=== PATIENT | male | born 1950 | race Two or more races ===

== ENCOUNTER 2016-10-06 15:55 | Inpatient (IN) | payer OTHER ==
[~2016-10-06] VITALS: Ht 170.2 cm; Wt 156.8 kg
[~2016-10-06 15:55] MED LIST: AZIT500T4 PO; CARV12.544 PO; FUR40T PO; GLIM4TAB42 PO; LORA-622 PO; METF-312; METF-316 PO; PRED-188 PO; SERT-135 PO; SIMV-13 PO
[2016-10-06] MEDS ORDERED: ALBUTEROL SULF 2.5 MG/0.5ML(0.5%) NEB SOLN NEB STA (16:07)
[2016-10-06] MEDS ORDERED: IPRATROPIUM BROM 0.5 MG/2.5ML INH SOL ONE (16:09)
[2016-10-06] MEDS ORDERED: ALBUTEROL SULF 2.5 MG/0.5ML(0.5%) NEB SOLN ONE (16:09)
[2016-10-06] MEDS ORDERED: methylPREDNISolone SOD SUCC 125 MG/2 ML VL IV ONE (16:15)
[2016-10-06] MEDS ORDERED: IPRATROPIUM BROM 0.5 MG/2.5ML INH SOL NEB ONE (16:15)
[2016-10-06] MEDS ORDERED: GLIM1TAB PO (16:30)
[2016-10-06] MEDS ORDERED: GABA300C PO (16:30)
[2016-10-06] MEDS ORDERED: TEMA15CA91 PO (16:30)
[2016-10-06] MEDS ORDERED: PIOG15TA25 PO (16:30)
[2016-10-06 16:52] LABS: Basophils # (auto) 0 uL; DEFINITIVE VIEW TRANSMISSION; Eosinophils # (auto) 0.1 uL; Eosinophils % (auto) 1.2 % (0.0-7.0); Hematocrit 50.4 % (41.0-53.0); Hemoglobin 15.4 g/dL (13.5-17.5); Lymphocytes # (auto) 0.7 uL; Lymphocytes % (auto) 8.3 % (10.0-50.0); Mean Corpuscular Hemoglobin 28.4 pg (28.0-32.0); Mean Corpuscular Hgb Conc. 30.5 g/dL (32.0-36.0); Mean Platelet Volume 10.2 fL (7.4-10.4); Monocytes # (auto) 0.3 uL; Monocytes % (auto) 3.4 % (0.0-12.0); Neutrophils % (auto) 87.1 % (37.0-80.0); Platelet Count (auto) 215 10^3/uL (140-450); Red Cell Distribution Width 17.9 % (11.6-16.0); SUSPECT VIEW TRANSMISSION; White Blood Cell 8.1 10^3/uL (4.4-10.8)
[2016-10-06 17:09] LABS: Partial Thromboplastin Time 29.9 sec (22.64-33.71)
[2016-10-06 17:10] LABS: INR 1.23 (0.9-1.15); Prothrombin Time 12.7 sec (9.37-12.3)
[2016-10-06 17:15] LABS: Albumin 3.6 g/dL (3.4-5.0); BUN/Creatinine Ratio 25.3; Bilirubin, Total 0.3 mg/dL (0.2-1.0); Calcium 8.9 mg/dL (8.5-10.1); Magnesium 2.2 mg/dL (1.6-2.6); Total Protein 7.5 g/dL (6.4-8.2)
[2016-10-06] MEDS ORDERED: HYDROcodone-ACET 10/325MG TAB PO ONE (17:30)
[2016-10-06 17:32] LABS: Potassium 6.1 mmol/L (3.5-5.1)
[2016-10-06] MEDS ORDERED: InsuLIN REG 1unit/0.01ml Soln (100units/ml) IV ONE (18:15)
[2016-10-06] MEDS ORDERED: DEXTROSE (50%) 50ML SYRG IV ONE (18:15)
[2016-10-06] MEDS ORDERED: AZITHROMYCIN 500MG/D5W 250ML 250 ML IV ONE (19:00)
[2016-10-06] MEDS: PIPERACILLIN-TAZOB 3.375GM 100 ML IV ONE ×2 (19:52→21:40)
[2016-10-06] MEDS: SODIUM CHLORIDE 0.9% 1,000 ML IV SCH ×2 (21:07→23:00)
[2016-10-06] MEDS ORDERED: SODIUM POLYSTYRENE SULF 15GM/60ML SUSP PO ONE (21:15)
[2016-10-06] MEDS ORDERED: NITROGLYCERIN 0.4 MG SL TAB SL PRN (21:15)
[2016-10-06] MEDS ORDERED: ONDANSETRON HCL 4 MG/2 ML VIAL IV PRN (21:15)
[2016-10-06] MEDS ORDERED: MORPHINE SULF INJ 2 MG/ML SYRINGE 1ML IV PRN (21:15)
[2016-10-06] MEDS ORDERED: DEXTROSE (50%) 50ML SYRG IV PRN (21:15)
[2016-10-06] MEDS ORDERED: IPRATROPIUM BROM 0.5 MG/2.5ML INH SOL NEB PRN (21:15)
[2016-10-06 21:20] VITALS: BP 118/81
[2016-10-06] MEDS: methylPREDNISolone SOD SUCC 125 MG/2 ML VL IV SCH (21:51)
[2016-10-06] MEDS: HEPARIN SODIUM (PORCINE) 5000 UNITS/ML 1ML VIAL SC SCH (21:51)
[2016-10-06] MEDS: ACCU-CHEK COMFORT CURVE STRIP VI SCH (22:01)
[2016-10-06] MEDS: InsuLIN REG 1unit/0.01ml Soln (100units/ml) SC SCH (22:11)
[2016-10-06] MEDS: IPRATROPIUM BROM 0.5 MG/2.5ML INH SOL NEB SCH (22:45)
[2016-10-06] MEDS: ALBUTEROL SULF 2.5 MG/0.5ML(0.5%) NEB SOLN NEB SCH (22:45)
[2016-10-06 23:15] VITALS: BP 127/77
[2016-10-06 23:25] VITALS: BP 121/48
[2016-10-07] VITALS (42 sets, daily range): BP systolic 91–150; BP diastolic 38–84
[2016-10-07] MEDS: ALBUTEROL SULF 2.5 MG/0.5ML(0.5%) NEB SOLN NEB SCH ×6 (02:03→22:01)
[2016-10-07] MEDS: IPRATROPIUM BROM 0.5 MG/2.5ML INH SOL NEB SCH ×6 (02:03→22:01)
[2016-10-07 04:01] LABS: Basophils # (auto) 0 uL; Eosinophils # (auto) 0 uL; Eosinophils % (auto) 0.1 % (0.0-7.0); Hematocrit 46.4 % (41.0-53.0); Hemoglobin 14.5 g/dL (13.5-17.5); Lymphocytes # (auto) 0.3 uL; Lymphocytes % (auto) 4.7 % (10.0-50.0); Mean Corpuscular Hemoglobin 28.8 pg (28.0-32.0); Mean Corpuscular Hgb Conc. 31.3 g/dL (32.0-36.0); Mean Corpuscular Volume 91.8 fL (80.0-100.0); Mean Platelet Volume 10.8 fL (7.4-10.4); Monocytes # (auto) 0 uL; Monocytes % (auto) 0.3 % (0.0-12.0); Neutrophils % (auto) 94.9 % (37.0-80.0); Platelet Count (auto) 181 10^3/uL (140-450); Red Cell Distribution Width 17.6 % (11.6-16.0); White Blood Cell 7.4 10^3/uL (4.4-10.8)
[2016-10-07] MEDS: HEPARIN SODIUM (PORCINE) 5000 UNITS/ML 1ML VIAL SC SCH ×3 (05:01→21:14)
[2016-10-07] MEDS: SODIUM CHLORIDE 0.9% 1,000 ML IV SCH (05:02)
[2016-10-07] MEDS: methylPREDNISolone SOD SUCC 125 MG/2 ML VL IV SCH ×3 (05:02→21:12)
[2016-10-07] MEDS: InsuLIN REG 1unit/0.01ml Soln (100units/ml) SC SCH ×4 (06:11→21:20)
[2016-10-07] MEDS: ACCU-CHEK COMFORT CURVE STRIP VI SCH ×4 (07:00→21:19)
[2016-10-07 07:15] LABS: Albumin 3.1 g/dL (3.4-5.0); Calcium 8.4 mg/dL (8.5-10.1)
[2016-10-07 07:19] LABS: BUN/Creatinine Ratio 26.3; Bilirubin, Total 0.3 mg/dL (0.2-1.0); Total Protein 6.9 g/dL (6.4-8.2)
[2016-10-07 07:32] LABS: Potassium 6.1 mmol/L (3.5-5.1)
[2016-10-07] MEDS: MONTELUKAST SODIUM 10 MG TAB PO SCH (09:50)
[2016-10-07] MEDS: ASPirin-EC 81 mg tab PO SCH (09:50)
[2016-10-07] MEDS ORDERED: DEXTROSE (50%) 50ML SYRG IV ONE (10:45)
[2016-10-07] MEDS ORDERED: FUROSEMIDE 40 MG/4 ML VIAL IV ONE (10:45)
[2016-10-07] MEDS ORDERED: CALCIUM GLUC 4.65 MEQ/10ML 4.65 MEQ in SODIUM CHL 0.9% 50 ML IV ONE (10:45)
[2016-10-07] MEDS ORDERED: InsuLIN REG 1unit/0.01ml Soln (100units/ml) IV ONE (10:45)
[2016-10-07 11:59] LABS: Urine Bilirubin Negative (Negative); Urine Color Yellow (Yellow); Urine Glucose Normal (Normal); Urine Ketone Negative (Negative); Urine Nitrite Negative (Negative); Urine RBC 1 /hpf (0 - 3); Urine Squamous Epithelial Cell FEW /hpf (<5); Urine Urobilinogen Normal (Negative); Urine pH 5.5 (5.0-8.0)
[2016-10-07 12:05] LABS: Urine Blood 1+ /uL (Negative)
[2016-10-07 14:16] LABS: BUN/Creatinine Ratio 28.3; Calcium 8.9 mg/dL (8.5-10.1); Potassium 4.6 mmol/L (3.5-5.1)
[2016-10-07] MEDS: GABAPENTIN 300 MG CAP PO SCH (17:26)
[2016-10-07] MEDS: TEMAZEPAM 15 MG CAP PO PRN (21:12)
[2016-10-08] VITALS (28 sets, daily range): BP systolic 89–151; BP diastolic 43–105
[2016-10-08] MEDS: ALBUTEROL SULF 2.5 MG/0.5ML(0.5%) NEB SOLN NEB SCH ×6 (02:15→22:54)
[2016-10-08] MEDS: IPRATROPIUM BROM 0.5 MG/2.5ML INH SOL NEB SCH ×6 (02:15→22:53)
[2016-10-08] MEDS: SODIUM CHLORIDE 0.9% 1,000 ML IV SCH (03:07)
[2016-10-08 03:17] LABS: Basophils # (auto) 0 uL; Basophils % (auto) 0.3 % (0.0-2.0); Eosinophils # (auto) 0 uL; Hematocrit 43.7 % (41.0-53.0); Hemoglobin 13.8 g/dL (13.5-17.5); Lymphocytes # (auto) 0.3 uL; Lymphocytes % (auto) 3.2 % (10.0-50.0); Mean Corpuscular Hemoglobin 28.5 pg (28.0-32.0); Mean Corpuscular Hgb Conc. 31.5 g/dL (32.0-36.0); Mean Corpuscular Volume 90.5 fL (80.0-100.0); Mean Platelet Volume 10.4 fL (7.4-10.4); Monocytes # (auto) 0.2 uL; Monocytes % (auto) 2.3 % (0.0-12.0); Neutrophils # (auto) 7.6 uL; Neutrophils % (auto) 94.2 % (37.0-80.0); Platelet Count (auto) 186 10^3/uL (140-450); Red Cell Distribution Width 17.5 % (11.6-16.0); White Blood Cell 8.1 10^3/uL (4.4-10.8)
[2016-10-08 03:29] LABS: BUN/Creatinine Ratio 29.6; Calcium 8.1 mg/dL (8.5-10.1); Potassium 4.6 mmol/L (3.5-5.1)
[2016-10-08] MEDS: InsuLIN REG 1unit/0.01ml Soln (100units/ml) SC SCH ×4 (05:43→21:56)
[2016-10-08] MEDS: HEPARIN SODIUM (PORCINE) 5000 UNITS/ML 1ML VIAL SC SCH ×3 (05:44→21:51)
[2016-10-08] MEDS: GABAPENTIN 300 MG CAP PO SCH ×3 (05:50→21:38)
[2016-10-08] MEDS: methylPREDNISolone SOD SUCC 125 MG/2 ML VL IV SCH (05:50)
[2016-10-08] MEDS: ACCU-CHEK COMFORT CURVE STRIP VI SCH ×4 (05:51→21:46)
[2016-10-08] MEDS ORDERED: FUROSEMIDE 40 MG/4 ML VIAL IV ONE (09:00)
[2016-10-08] MEDS: MONTELUKAST SODIUM 10 MG TAB PO SCH (10:46)
[2016-10-08] MEDS: ASPirin-EC 81 mg tab PO SCH (10:46)
[2016-10-08] MEDS ORDERED: hydrALAZINE HCL 20 MG/ML VL IV PRN (15:30)
[2016-10-08] MEDS ORDERED: CARVEDILOL 12.5 MG TAB ONE (15:52)
[2016-10-08] MEDS: methylPREDNISolone SOD SUCC 40 MG/ML VL IV SCH (17:50)
[2016-10-08] MEDS: CARVEDILOL 12.5 MG TAB PO SCH (21:38)
[2016-10-08] MEDS: TEMAZEPAM 15 MG CAP PO PRN (21:38)
[2016-10-09] VITALS (8 sets, daily range): BP systolic 110–147; BP diastolic 51–92
[2016-10-09] MEDS: IPRATROPIUM BROM 0.5 MG/2.5ML INH SOL NEB SCH ×5 (02:00→22:34)
[2016-10-09] MEDS: ALBUTEROL SULF 2.5 MG/0.5ML(0.5%) NEB SOLN NEB SCH ×5 (02:00→22:34)
[2016-10-09] MEDS: GABAPENTIN 300 MG CAP PO SCH ×2 (06:23→14:00)
[2016-10-09] MEDS: methylPREDNISolone SOD SUCC 40 MG/ML VL IV SCH ×2 (06:23→17:50)
[2016-10-09] MEDS: HEPARIN SODIUM (PORCINE) 5000 UNITS/ML 1ML VIAL SC SCH ×2 (06:32→14:43)
[2016-10-09] MEDS: ACCU-CHEK COMFORT CURVE STRIP VI SCH ×3 (06:39→17:00)
[2016-10-09] MEDS: InsuLIN REG 1unit/0.01ml Soln (100units/ml) SC SCH ×3 (06:42→17:00)
[2016-10-09 06:45] LABS: Basophils # (auto) 0 uL; Basophils % (auto) 0.1 % (0.0-2.0); Eosinophils # (auto) 0 uL; Hematocrit 47.8 % (41.0-53.0); Lymphocytes # (auto) 0.2 uL; Lymphocytes % (auto) 3.5 % (10.0-50.0); Mean Corpuscular Hemoglobin 28.5 pg (28.0-32.0); Mean Corpuscular Hgb Conc. 31.3 g/dL (32.0-36.0); Mean Corpuscular Volume 90.9 fL (80.0-100.0); Mean Platelet Volume 10.2 fL (7.4-10.4); Monocytes # (auto) 0.2 uL; Monocytes % (auto) 3.3 % (0.0-12.0); Neutrophils # (auto) 6.2 uL; Neutrophils % (auto) 93.1 % (37.0-80.0); Platelet Count (auto) 182 10^3/uL (140-450); Red Cell Distribution Width 17.2 % (11.6-16.0); White Blood Cell 6.7 10^3/uL (4.4-10.8)
[2016-10-09 07:22] LABS: Albumin 3.4 g/dL (3.4-5.0); BUN/Creatinine Ratio 41.2; Bilirubin, Total 0.5 mg/dL (0.2-1.0); Potassium 5.1 mmol/L (3.5-5.1)
[2016-10-09] MEDS: ASPirin-EC 81 mg tab PO SCH (10:32)
[2016-10-09] MEDS: MONTELUKAST SODIUM 10 MG TAB PO SCH (10:32)
[2016-10-09] MEDS: CARVEDILOL 12.5 MG TAB PO SCH (10:33)
[2016-10-09] MEDS ORDERED: ACETAMINOPHEN 325 MG TAB PO ONE (13:53)
[2016-10-09] MEDS ORDERED: ACETAMINOPHEN 325 MG TAB PO PRN (14:00)
== END 2016-10-09 23:56 | disposition home or self-care (01) | DRG 189 ==
LOC: EDBD 15:55 → ER 15:57 → ICU WEST 15:58 → TELE-WESTW 10-09 02:00
PROVIDERS: ADMIT Hospitalist; ATTEND Hospitalist
PROC: 5A09457 Assistance with Respiratory Ventilation, 24-96 Consecutive Hours, Continuous Positive Airway Pressure (ICD-10-PCS; principal; 2016-10-07)
DX: J96.21 Acute and chronic respiratory failure with hypoxia (principal); J44.1 Chronic obstructive pulmonary disease with (acute) exacerbation; E66.2 Morbid (severe) obesity with alveolar hypoventilation; Z68.43 Body mass index [BMI] 50.0-59.9, adult; J96.22 Acute and chronic respiratory failure with hypercapnia; J96.11 Chronic respiratory failure with hypoxia; I12.9 Hypertensive chronic kidney disease with stage 1 through stage 4 chronic kidney disease, or unspecified chronic kidney disease; N18.3 Chronic kidney disease, stage 3 (moderate); J45.909 Unspecified asthma, uncomplicated; E87.5 Hyperkalemia; E11.22 Type 2 diabetes mellitus with diabetic chronic kidney disease; Z23 Encounter for immunization
CPT/HCPCS: 36415; 36600; 71010; 80048; 80053; 81001; 82805; 82962; 83605; 83735; 84132; 84484; 85025; 85049; 85610; 85730; 87040; 87081; 87086; 93005; 93971; 94640; 94660; 96374; 96375; 97001; 99291; J1815; J2543

== ENCOUNTER 2016-10-11 02:11 | Inpatient (IN) | payer OTHER ==
[2016-10-11] VITALS (60 sets, daily range): BP systolic 91–159; BP diastolic 44–118
[~2016-10-11] VITALS: Ht 182.9 cm; Wt 152.8 kg
[~2016-10-11 02:11] MED LIST changes: -AZIT500T4 PO; +ETOMIDATE (2MG/ML) 20ML VIAL IV ONE; +FUROSEMIDE 20 MG/2 ML VIAL ONE; +FUROSEMIDE 40 MG/4 ML VIAL ONE; +GABA300C PO; +GLIM1TAB PO; -GLIM4TAB42 PO; -LORA-622 PO; -METF-312; -METF-316 PO; +MIDAZOLAM DRIP 100 mg/100mL NS 100 ML IV ONE; +PIOG15TA25 PO; -PRED-188 PO; -SERT-135 PO; +SUCCINYLCHOLINE CHLORIDE 20 MG/ML 10ML VIAL IV ONE; +TEMA15CA91 PO
[2016-10-11] MEDS ORDERED: NOREPINEPHRINE BITARTRATE 250 ML IV ONE (02:33)
[2016-10-11] MEDS ORDERED: PROPOFOL 100 ML IV ONE (02:56)
[2016-10-11] MEDS ORDERED: MIDAZOLAM DRIP 100 mg/100mL NS 100 ML IV SCH (03:45)
[2016-10-11] MEDS ORDERED: SODIUM CHLORIDE 0.9% 1,000 ML IV ONE ×3 (03:45→05:53)
[2016-10-11] MEDS ORDERED: NOREPINEPHRINE BITARTRATE 250 ML IV SCH (03:45)
[2016-10-11] MEDS ORDERED: FUROSEMIDE 20 MG/2 ML VIAL IV ONE (03:45)
[2016-10-11] MEDS ORDERED: PROPOFOL 100 ML IV SCH (03:45)
[2016-10-11] MEDS ORDERED: PIPERACILLIN-TAZOB 3.375GM 100 ML IV ONE (04:00)
[2016-10-11 04:15] LABS: Lactic Acid 2.1 mmol/L (0.4-2.0)
[2016-10-11 04:19] LABS: REFLEX LACTIC ACID YES OR NO YES
[2016-10-11 04:37] LABS: Basophils # (auto) 0 uL; Eosinophils # (auto) 0 uL; Eosinophils % (auto) 0.3 % (0.0-7.0); Hemoglobin 14.1 g/dL (13.5-17.5); Lymphocytes # (auto) 0.2 uL; Lymphocytes % (auto) 1.3 % (10.0-50.0); Mean Corpuscular Hemoglobin 29.2 pg (28.0-32.0); Mean Corpuscular Hgb Conc. 32.1 g/dL (32.0-36.0); Mean Corpuscular Volume 91.1 fL (80.0-100.0); Monocytes # (auto) 0.8 uL; Monocytes % (auto) 5.5 % (0.0-12.0); Neutrophils % (auto) 92.9 % (37.0-80.0); Platelet Count (auto) 186 10^3/uL (140-450); Red Cell Distribution Width 16.9 % (11.6-16.0); White Blood Cell 15.1 10^3/uL (4.4-10.8)
[2016-10-11 04:51] LABS: Albumin 3.2 g/dL (3.4-5.0); BUN/Creatinine Ratio 30.2; Calcium 8.5 mg/dL (8.5-10.1); Magnesium 2.4 mg/dL (1.6-2.6); Potassium 5.3 mmol/L (3.5-5.1)
[2016-10-11 04:53] LABS: Bilirubin, Total 0.6 mg/dL (0.2-1.0); Total Protein 7.3 g/dL (6.4-8.2)
[2016-10-11 05:11] LABS: Urine Bilirubin Negative (Negative); Urine Blood 1+ /uL (Negative); Urine Color Yellow (Yellow); Urine Glucose Normal (Normal); Urine Hyaline Cast FEW /lpf (0 - 2); Urine Ketone Negative (Negative); Urine Mucus FEW (None Seen); Urine Nitrite Negative (Negative); Urine RBC 5 /hpf (0 - 3); Urine Squamous Epithelial Cell FEW /hpf (<5); Urine Urobilinogen Normal (Negative)
[2016-10-11 05:37] LABS: Temperature: 21.6 C (20.0-25.0)
[2016-10-11] MEDS: PROPOFOL 100 ML IV SCH (07:35)
[2016-10-11] MEDS: MIDAZOLAM DRIP 100 mg/100mL NS 100 ML IV SCH ×3 (07:35→21:36)
[2016-10-11] MEDS ORDERED: MIDAZOLAM DRIP 100 mg/100mL NS 100 ML IV ONE (07:36)
[2016-10-11] MEDS ORDERED: FUROSEMIDE 40 MG/4 ML VIAL IV ONE (09:15)
[2016-10-11] MEDS ORDERED: NITROGLYCERIN 0.4 MG SL TAB SL PRN (09:30)
[2016-10-11] MEDS ORDERED: HEPARIN SODIUM (PORCINE) 5000 UNITS/ML 1ML VIAL SC SCH (10:00)
[2016-10-11] MEDS: ALBUTEROL SULF 2.5 MG/0.5ML(0.5%) NEB SOLN NEB SCH ×4 (10:48→22:16)
[2016-10-11] MEDS: IPRATROPIUM BROM 0.5 MG/2.5ML INH SOL NEB SCH ×4 (10:48→22:16)
[2016-10-11] MEDS ORDERED: PIPERACILLIN-TAZOB 2.25GM 50 ML IV SCH (14:00)
[2016-10-11] MEDS: PIPERACILLIN-TAZOB 3.375GM 100 ML IV SCH ×2 (14:26→21:51)
[2016-10-11] MEDS ORDERED: GABA-494 PO (17:09)
[2016-10-11] MEDS ORDERED: TEMA30CA PO (17:09)
[2016-10-11] MEDS ORDERED: GLIM4TAB42 PO (17:09)
[2016-10-11] MEDS ORDERED: METF-312 PO (17:09)
[2016-10-11] MEDS ORDERED: LISI10TA6 PO (17:09)
[2016-10-11] MEDS ORDERED: CARV12.544 PO (17:09)
[2016-10-11] MEDS ORDERED: SIMV-13 PO (17:09)
[2016-10-11] MEDS: ENOXAPARIN SOD 150 MG/1 ML SYRINGE SC SCH (21:57)
[2016-10-11] MEDS ORDERED: ENOXAPARIN SOD 100 MG/1 ML SYRINGE SC SCH (22:00)
[2016-10-12] VITALS (100 sets, daily range): BP systolic 79–161; BP diastolic 37–96
[2016-10-12] MEDS: PROPOFOL 100 ML IV SCH ×4 (01:00→21:27)
[2016-10-12] MEDS ORDERED: DOPamine 1600MCG/ML 250 ML IV ONE (01:57)
[2016-10-12] MEDS: IPRATROPIUM BROM 0.5 MG/2.5ML INH SOL NEB SCH ×5 (02:13→22:23)
[2016-10-12] MEDS: ALBUTEROL SULF 2.5 MG/0.5ML(0.5%) NEB SOLN NEB SCH ×5 (02:13→22:23)
[2016-10-12] MEDS: DOPamine 1600MCG/ML 250 ML IV SCH ×3 (02:39→18:09)
[2016-10-12 03:53] LABS: Basophils # (auto) 0 uL; Basophils % (auto) 0.5 % (0.0-2.0); Eosinophils # (auto) 0.4 uL; Eosinophils % (auto) 4.9 % (0.0-7.0); Hematocrit 47.3 % (41.0-53.0); Lymphocytes # (auto) 0.9 uL; Lymphocytes % (auto) 10.4 % (10.0-50.0); Mean Corpuscular Hemoglobin 28.5 pg (28.0-32.0); Mean Corpuscular Hgb Conc. 31.6 g/dL (32.0-36.0); Mean Corpuscular Volume 89.9 fL (80.0-100.0); Mean Platelet Volume 10.5 fL (7.4-10.4); Monocytes # (auto) 0.7 uL; Monocytes % (auto) 7.7 % (0.0-12.0); Neutrophils # (auto) 6.6 uL; Neutrophils % (auto) 76.5 % (37.0-80.0); Platelet Count (auto) 149 10^3/uL (140-450); Red Cell Distribution Width 16.7 % (11.6-16.0); White Blood Cell 8.7 10^3/uL (4.4-10.8)
[2016-10-12 04:17] LABS: Calcium 8.8 mg/dL (8.5-10.1); Potassium 3.5 mmol/L (3.5-5.1)
[2016-10-12] MEDS: MIDAZOLAM DRIP 100 mg/100mL NS 100 ML IV SCH ×3 (05:42→23:56)
[2016-10-12] MEDS: PIPERACILLIN-TAZOB 3.375GM 100 ML IV SCH ×3 (05:42→21:26)
[2016-10-12] MEDS ORDERED: DEXTROSE (50%) 50ML SYRG IV PRN (09:30)
[2016-10-12] MEDS: ENOXAPARIN SOD 150 MG/1 ML SYRINGE SC SCH ×2 (09:52→21:27)
[2016-10-12] MEDS: PANTOPRAZOLE SODIUM 40 MG/10 ML VIAL IV SCH (09:52)
[2016-10-12] MEDS ORDERED: FUROSEMIDE 40 MG/4 ML VIAL IV ONE (10:00)
[2016-10-12] MEDS: ACCU-CHEK COMFORT CURVE STRIP VI SCH ×3 (11:56→23:56)
[2016-10-12] MEDS: InsuLIN REG 1unit/0.01ml Soln (100units/ml) SC SCH ×2 (12:11→17:38)
[2016-10-13] VITALS (100 sets, daily range): BP systolic 83–157; BP diastolic 45–97
[2016-10-13] MEDS: PROPOFOL 100 ML IV SCH ×3 (01:28→19:45)
[2016-10-13] MEDS: IPRATROPIUM BROM 0.5 MG/2.5ML INH SOL NEB SCH ×6 (02:12→22:02)
[2016-10-13] MEDS: ALBUTEROL SULF 2.5 MG/0.5ML(0.5%) NEB SOLN NEB SCH ×6 (02:12→22:01)
[2016-10-13 04:29] LABS: Basophils # (auto) 0 uL; Eosinophils # (auto) 0.6 uL; Eosinophils % (auto) 6.4 % (0.0-7.0); Hematocrit 48.3 % (41.0-53.0); Hemoglobin 15.5 g/dL (13.5-17.5); Lymphocytes % (auto) 10.3 % (10.0-50.0); Mean Corpuscular Hemoglobin 28.9 pg (28.0-32.0); Mean Corpuscular Hgb Conc. 32.2 g/dL (32.0-36.0); Mean Corpuscular Volume 89.7 fL (80.0-100.0); Mean Platelet Volume 11.1 fL (7.4-10.4); Monocytes # (auto) 0.6 uL; Monocytes % (auto) 6.2 % (0.0-12.0); Neutrophils # (auto) 7.5 uL; Neutrophils % (auto) 77.1 % (37.0-80.0); Platelet Count (auto) 160 10^3/uL (140-450); Red Cell Distribution Width 16.7 % (11.6-16.0); White Blood Cell 9.7 10^3/uL (4.4-10.8)
[2016-10-13] MEDS: DOPamine 1600MCG/ML 250 ML IV SCH ×3 (04:55→19:15)
[2016-10-13 05:12] LABS: Potassium 3.5 mmol/L (3.5-5.1)
[2016-10-13] MEDS: ACCU-CHEK COMFORT CURVE STRIP VI SCH ×3 (05:38→18:00)
[2016-10-13] MEDS: PIPERACILLIN-TAZOB 3.375GM 100 ML IV SCH ×3 (05:38→22:11)
[2016-10-13] MEDS: InsuLIN REG 1unit/0.01ml Soln (100units/ml) SC SCH ×4 (05:39→18:00)
[2016-10-13] MEDS: MIDAZOLAM DRIP 100 mg/100mL NS 100 ML IV SCH (06:38)
[2016-10-13] MEDS ORDERED: Diabetisource AC 1 Liter GT SCH (09:45)
[2016-10-13] MEDS: PANTOPRAZOLE SODIUM 40 MG/10 ML VIAL IV SCH (10:21)
[2016-10-13] MEDS: ENOXAPARIN SOD 150 MG/1 ML SYRINGE SC SCH ×2 (10:21→22:11)
[2016-10-14] VITALS (89 sets, daily range): BP systolic 111–163; BP diastolic 60–119
[2016-10-14] MEDS: ALBUTEROL SULF 2.5 MG/0.5ML(0.5%) NEB SOLN NEB SCH ×6 (01:57→22:45)
[2016-10-14] MEDS: IPRATROPIUM BROM 0.5 MG/2.5ML INH SOL NEB SCH ×6 (01:57→22:45)
[2016-10-14] MEDS: PROPOFOL 100 ML IV SCH (02:07)
[2016-10-14] MEDS: DOPamine 1600MCG/ML 250 ML IV SCH ×3 (03:30→20:00)
[2016-10-14 04:17] LABS: Basophils # (auto) 0 uL; Basophils % (auto) 0.2 % (0.0-2.0); DEFINITIVE VIEW TRANSMISSION; Eosinophils # (auto) 0.8 uL; Hematocrit 45.4 % (41.0-53.0); Hemoglobin 14.4 g/dL (13.5-17.5); Lymphocytes # (auto) 0.9 uL; Lymphocytes % (auto) 9.4 % (10.0-50.0); Mean Corpuscular Hemoglobin 28.8 pg (28.0-32.0); Mean Corpuscular Hgb Conc. 31.8 g/dL (32.0-36.0); Mean Corpuscular Volume 90.7 fL (80.0-100.0); Mean Platelet Volume 10.8 fL (7.4-10.4); Monocytes # (auto) 0.8 uL; Monocytes % (auto) 8.3 % (0.0-12.0); Neutrophils # (auto) 7.2 uL; Neutrophils % (auto) 74.1 % (37.0-80.0); Platelet Count (auto) 166 10^3/uL (140-450); Red Cell Distribution Width 16.6 % (11.6-16.0); White Blood Cell 9.7 10^3/uL (4.4-10.8)
[2016-10-14 04:37] LABS: BUN/Creatinine Ratio 23.6; Calcium 8.7 mg/dL (8.5-10.1); Potassium 3.6 mmol/L (3.5-5.1)
[2016-10-14] MEDS: ACCU-CHEK COMFORT CURVE STRIP VI SCH ×4 (05:25→18:09)
[2016-10-14] MEDS: InsuLIN REG 1unit/0.01ml Soln (100units/ml) SC SCH ×4 (05:25→18:00)
[2016-10-14] MEDS: PIPERACILLIN-TAZOB 3.375GM 100 ML IV SCH ×3 (05:25→22:28)
[2016-10-14] MEDS: ENOXAPARIN SOD 150 MG/1 ML SYRINGE SC SCH ×2 (09:29→22:28)
[2016-10-14] MEDS: PANTOPRAZOLE SODIUM 40 MG/10 ML VIAL IV SCH (09:29)
[2016-10-14] MEDS: SODIUM CHLORIDE 0.9% 1,000 ML IV SCH ×2 (12:16→22:28)
[2016-10-14] MEDS: ACETAMINOPHEN 325 MG TAB PO PRN (18:22)
[2016-10-15] VITALS (28 sets, daily range): BP systolic 128–147; BP diastolic 65–95
[2016-10-15] MEDS: ACCU-CHEK COMFORT CURVE STRIP VI SCH ×5 (00:26→23:34)
[2016-10-15] MEDS: InsuLIN REG 1unit/0.01ml Soln (100units/ml) SC SCH ×4 (00:26→17:44)
[2016-10-15] MEDS: ALBUTEROL SULF 2.5 MG/0.5ML(0.5%) NEB SOLN NEB SCH ×6 (02:09→23:02)
[2016-10-15] MEDS: IPRATROPIUM BROM 0.5 MG/2.5ML INH SOL NEB SCH ×6 (02:09→23:02)
[2016-10-15] MEDS: PROPOFOL 100 ML IV SCH (03:25)
[2016-10-15] MEDS ORDERED: diphenhdrAMINE HCL 25 MG CAP PO ONE (03:30)
[2016-10-15 03:46] LABS: Basophils # (auto) 0 uL; Basophils % (auto) 0.2 % (0.0-2.0); DEFINITIVE VIEW TRANSMISSION; Eosinophils # (auto) 0.8 uL; Eosinophils % (auto) 7.1 % (0.0-7.0); Hematocrit 41.6 % (41.0-53.0); Hemoglobin 13.2 g/dL (13.5-17.5); Lymphocytes # (auto) 0.6 uL; Lymphocytes % (auto) 5.4 % (10.0-50.0); Mean Corpuscular Hemoglobin 28.7 pg (28.0-32.0); Mean Corpuscular Hgb Conc. 31.7 g/dL (32.0-36.0); Mean Corpuscular Volume 90.4 fL (80.0-100.0); Mean Platelet Volume 10.5 fL (7.4-10.4); Monocytes % (auto) 9.1 % (0.0-12.0); Neutrophils # (auto) 8.7 uL; Neutrophils % (auto) 78.2 % (37.0-80.0); Platelet Count (auto) 164 10^3/uL (140-450); Red Cell Distribution Width 16.2 % (11.6-16.0); White Blood Cell 11.1 10^3/uL (4.4-10.8)
[2016-10-15 04:06] LABS: BUN/Creatinine Ratio 22.9; Calcium 8.6 mg/dL (8.5-10.1); Potassium 3.8 mmol/L (3.5-5.1)
[2016-10-15] MEDS: DOPamine 1600MCG/ML 250 ML IV SCH (04:15)
[2016-10-15] MEDS: PIPERACILLIN-TAZOB 3.375GM 100 ML IV SCH ×3 (05:59→23:11)
[2016-10-15] MEDS: PANTOPRAZOLE SODIUM 40 MG/10 ML VIAL IV SCH (09:58)
[2016-10-15] MEDS: SODIUM CHLORIDE 0.9% 1,000 ML IV SCH ×2 (09:59→17:57)
[2016-10-15] MEDS: ENOXAPARIN SOD 150 MG/1 ML SYRINGE SC SCH ×2 (10:13→23:11)
[2016-10-15] MEDS: ACETAMINOPHEN 325 MG TAB PO PRN (17:47)
[2016-10-16] MEDS: InsuLIN REG 1unit/0.01ml Soln (100units/ml) SC SCH ×5 (00:03→22:00)
[2016-10-16] MEDS: ALBUTEROL SULF 2.5 MG/0.5ML(0.5%) NEB SOLN NEB SCH ×6 (02:25→23:01)
[2016-10-16] MEDS: IPRATROPIUM BROM 0.5 MG/2.5ML INH SOL NEB SCH ×6 (02:25→23:01)
[2016-10-16] MEDS: SODIUM CHLORIDE 0.9% 1,000 ML IV SCH ×2 (04:00→13:36)
[2016-10-16 05:25] VITALS: BP 123/76
[2016-10-16] MEDS: PIPERACILLIN-TAZOB 3.375GM 100 ML IV SCH ×3 (05:39→22:49)
[2016-10-16] MEDS: ACCU-CHEK COMFORT CURVE STRIP VI SCH ×4 (06:05→22:00)
[2016-10-16] MEDS: MORPHINE SULF INJ 2 MG/ML SYRINGE 1ML IV PRN ×2 (06:45→15:11)
[2016-10-16 07:03] LABS: BUN/Creatinine Ratio 19.6; Calcium 8.3 mg/dL (8.5-10.1)
[2016-10-16 07:04] LABS: Basophils # (auto) 0 uL; Basophils % (auto) 0.1 % (0.0-2.0); DEFINITIVE VIEW TRANSMISSION; Eosinophils # (auto) 0.8 uL; Eosinophils % (auto) 7.8 % (0.0-7.0); Hematocrit 37.2 % (41.0-53.0); Hemoglobin 11.7 g/dL (13.5-17.5); Lymphocytes # (auto) 0.8 uL; Lymphocytes % (auto) 8.2 % (10.0-50.0); Mean Corpuscular Hemoglobin 29.2 pg (28.0-32.0); Mean Corpuscular Hgb Conc. 31.5 g/dL (32.0-36.0); Mean Corpuscular Volume 92.6 fL (80.0-100.0); Mean Platelet Volume 10.7 fL (7.4-10.4); Monocytes # (auto) 1.1 uL; Monocytes % (auto) 11.4 % (0.0-12.0); Neutrophils % (auto) 72.5 % (37.0-80.0); Platelet Count (auto) 153 10^3/uL (140-450); Red Cell Distribution Width 15.7 % (11.6-16.0); White Blood Cell 9.7 10^3/uL (4.4-10.8)
[2016-10-16 08:31] VITALS: BP 119/77
[2016-10-16] MEDS: PANTOPRAZOLE SODIUM 40 MG/10 ML VIAL IV SCH (09:23)
[2016-10-16] MEDS: ENOXAPARIN SOD 150 MG/1 ML SYRINGE SC SCH ×2 (09:24→22:50)
[2016-10-16] MEDS ORDERED: SERT-135 PO (10:19)
[2016-10-16] MEDS ORDERED: PRE5T PO (12:23)
[2016-10-16 13:00] VITALS: BP 119/51
[2016-10-16 17:02] VITALS: BP 123/66
[2016-10-16] MEDS: ACETAMINOPHEN 325 MG TAB PO PRN (18:42)
[2016-10-16] MEDS ORDERED: DEXTROSE (50%) 50ML SYRG IV PRN (21:00)
[2016-10-16] MEDS ORDERED: SERTRALINE HCL 50 MG TAB PO ONE (21:30)
[2016-10-16] MEDS: CARVEDILOL 12.5 MG TAB PO SCH (22:00)
[2016-10-16] MEDS: ATORVASTATIN 20 MG TAB PO SCH (22:50)
[2016-10-16] MEDS: GABAPENTIN 100 MG CAP PO SCH (22:50)
[2016-10-16 23:18] VITALS: BP 103/46
[2016-10-16 23:32] VITALS: BP 103/46
[2016-10-17] MEDS: IPRATROPIUM BROM 0.5 MG/2.5ML INH SOL NEB SCH ×6 (02:10→22:03)
[2016-10-17] MEDS: ALBUTEROL SULF 2.5 MG/0.5ML(0.5%) NEB SOLN NEB SCH ×6 (02:10→22:03)
[2016-10-17] MEDS: PIPERACILLIN-TAZOB 3.375GM 100 ML IV SCH ×3 (05:22→22:05)
[2016-10-17] MEDS: GABAPENTIN 100 MG CAP PO SCH ×3 (05:22→22:03)
[2016-10-17] MEDS: MORPHINE SULF INJ 2 MG/ML SYRINGE 1ML IV PRN ×3 (05:24→22:06)
[2016-10-17 05:25] VITALS: BP 121/71
[2016-10-17] MEDS: InsuLIN REG 1unit/0.01ml Soln (100units/ml) SC SCH ×4 (07:00→21:44)
[2016-10-17] MEDS: ACCU-CHEK COMFORT CURVE STRIP VI SCH ×4 (07:05→22:06)
[2016-10-17] MEDS ORDERED: INFLUENZA QUAD 2016-2017 0.5 ML SYRG IM ONE (09:15)
[2016-10-17] MEDS ORDERED: PNEUMOCOCCAL VACC POLYS 25 MCG/0.5 ML VIAL IM ONE (09:15)
[2016-10-17] MEDS: SODIUM CHLORIDE 0.9% 1,000 ML IV SCH ×2 (09:16)
[2016-10-17 09:58] VITALS: BP 123/74
[2016-10-17] MEDS: PANTOPRAZOLE SODIUM 40 MG/10 ML VIAL IV SCH (10:12)
[2016-10-17] MEDS: CARVEDILOL 12.5 MG TAB PO SCH ×2 (10:13→22:03)
[2016-10-17] MEDS: SERTRALINE HCL 50 MG TAB PO SCH (10:13)
[2016-10-17] MEDS: ENOXAPARIN SOD 150 MG/1 ML SYRINGE SC SCH ×2 (10:13→22:06)
[2016-10-17 13:00] VITALS: BP 114/54
[2016-10-17 15:53] VITALS: BP 121/60
[2016-10-17] MEDS: ATORVASTATIN 20 MG TAB PO SCH (22:02)
[2016-10-17] MEDS: TEMAZEPAM 15 MG CAP PO PRN (22:03)
[2016-10-17 22:30] VITALS: BP 109/54
[2016-10-18] VITALS (7 sets, daily range): BP systolic 86–110; BP diastolic 46–63
[2016-10-18] MEDS: ALBUTEROL SULF 2.5 MG/0.5ML(0.5%) NEB SOLN NEB SCH ×6 (01:58→22:40)
[2016-10-18] MEDS: IPRATROPIUM BROM 0.5 MG/2.5ML INH SOL NEB SCH ×6 (01:58→22:40)
[2016-10-18] MEDS: GABAPENTIN 100 MG CAP PO SCH ×3 (05:43→22:04)
[2016-10-18] MEDS: PIPERACILLIN-TAZOB 3.375GM 100 ML IV SCH ×3 (05:46→22:03)
[2016-10-18] MEDS: ACCU-CHEK COMFORT CURVE STRIP VI SCH ×4 (07:15→22:04)
[2016-10-18] MEDS: InsuLIN REG 1unit/0.01ml Soln (100units/ml) SC SCH ×4 (07:16→22:11)
[2016-10-18] MEDS: SERTRALINE HCL 50 MG TAB PO SCH (10:38)
[2016-10-18] MEDS: CARVEDILOL 12.5 MG TAB PO SCH ×2 (10:41→22:04)
[2016-10-18] MEDS: PANTOPRAZOLE SODIUM 40 MG/10 ML VIAL IV SCH (10:42)
[2016-10-18] MEDS: ENOXAPARIN SOD 150 MG/1 ML SYRINGE SC SCH ×2 (10:42→22:00)
[2016-10-18] MEDS: MORPHINE SULF INJ 2 MG/ML SYRINGE 1ML IV PRN ×3 (10:54→20:20)
[2016-10-18 17:29] LABS: Basophils # (auto) 0 uL; Basophils % (auto) 0.3 % (0.0-2.0); DEFINITIVE VIEW TRANSMISSION; Eosinophils # (auto) 0.7 uL; Eosinophils % (auto) 7.5 % (0.0-7.0); Hematocrit 23.2 % (41.0-53.0); Hemoglobin 7.5 g/dL (13.5-17.5); Lymphocytes # (auto) 0.9 uL; Lymphocytes % (auto) 8.8 % (10.0-50.0); Mean Corpuscular Hemoglobin 29.8 pg (28.0-32.0); Mean Corpuscular Hgb Conc. 32.4 g/dL (32.0-36.0); Mean Corpuscular Volume 92.1 fL (80.0-100.0); Mean Platelet Volume 9.6 fL (7.4-10.4); Monocytes # (auto) 0.7 uL; Monocytes % (auto) 7.2 % (0.0-12.0); Neutrophils # (auto) 7.6 uL; Neutrophils % (auto) 76.2 % (37.0-80.0); Platelet Count (auto) 181 10^3/uL (140-450); Red Cell Distribution Width 15.6 % (11.6-16.0); White Blood Cell 9.9 10^3/uL (4.4-10.8)
[2016-10-18] MEDS: ATORVASTATIN 20 MG TAB PO SCH (22:04)
[2016-10-19] VITALS (18 sets, daily range): BP systolic 81–135; BP diastolic 44–69
[2016-10-19] MEDS: MORPHINE SULF INJ 2 MG/ML SYRINGE 1ML IV PRN ×3 (03:04→20:17)
[2016-10-19] MEDS: ACETAMINOPHEN 325 MG TAB PO PRN (04:59)
[2016-10-19] MEDS: GABAPENTIN 100 MG CAP PO SCH ×3 (06:16→21:25)
[2016-10-19] MEDS: ALBUTEROL SULF 2.5 MG/0.5ML(0.5%) NEB SOLN NEB SCH ×6 (06:30→22:20)
[2016-10-19] MEDS: IPRATROPIUM BROM 0.5 MG/2.5ML INH SOL NEB SCH ×6 (06:30→22:20)
[2016-10-19] MEDS: ACCU-CHEK COMFORT CURVE STRIP VI SCH ×4 (06:47→21:37)
[2016-10-19] MEDS: PIPERACILLIN-TAZOB 3.375GM 100 ML IV SCH ×3 (06:48→21:26)
[2016-10-19] MEDS: InsuLIN REG 1unit/0.01ml Soln (100units/ml) SC SCH ×4 (06:48→21:48)
[2016-10-19 08:06] LABS: Hematocrit 31.1 % (41.0-53.0); Hemoglobin 10.1 g/dL (13.5-17.5)
[2016-10-19] MEDS: CARVEDILOL 12.5 MG TAB PO SCH ×2 (10:00→21:24)
[2016-10-19] MEDS: PANTOPRAZOLE SODIUM 40 MG/10 ML VIAL IV SCH (10:45)
[2016-10-19] MEDS: SERTRALINE HCL 50 MG TAB PO SCH (10:45)
[2016-10-19 15:10] LABS: Hemoglobin 10.9 g/dL (13.5-17.5)
[2016-10-19 19:31] LABS: Hematocrit 34.5 % (41.0-53.0); Hemoglobin 11.1 g/dL (13.5-17.5)
[2016-10-19] MEDS: ATORVASTATIN 20 MG TAB PO SCH (21:24)
[2016-10-19] MEDS: TEMAZEPAM 15 MG CAP PO PRN (22:49)
[2016-10-20 04:46] VITALS: BP 131/73
[2016-10-20 04:53] LABS: Basophils # (auto) 0 uL; Basophils % (auto) 0.1 % (0.0-2.0); DEFINITIVE VIEW TRANSMISSION; Eosinophils # (auto) 0.8 uL; Eosinophils % (auto) 6.8 % (0.0-7.0); Hematocrit 33.6 % (41.0-53.0); Hemoglobin 10.6 g/dL (13.5-17.5); Lymphocytes # (auto) 0.7 uL; Lymphocytes % (auto) 5.8 % (10.0-50.0); Mean Corpuscular Hemoglobin 29.3 pg (28.0-32.0); Mean Corpuscular Hgb Conc. 31.5 g/dL (32.0-36.0); Mean Platelet Volume 9.2 fL (7.4-10.4); Monocytes # (auto) 0.6 uL; Monocytes % (auto) 5.3 % (0.0-12.0); Neutrophils # (auto) 9.2 uL; Platelet Count (auto) 218 10^3/uL (140-450); Red Cell Distribution Width 15.3 % (11.6-16.0); White Blood Cell 11.3 10^3/uL (4.4-10.8)
[2016-10-20 05:10] LABS: INR 1.11 (0.9-1.15); Partial Thromboplastin Time 26.8 sec (22.64-33.71); Prothrombin Time 11.4 sec (9.37-12.3)
[2016-10-20 05:13] LABS: Calcium 8.2 mg/dL (8.5-10.1); Potassium 3.8 mmol/L (3.5-5.1)
[2016-10-20] MEDS: PIPERACILLIN-TAZOB 3.375GM 100 ML IV SCH ×3 (05:17→21:16)
[2016-10-20] MEDS: GABAPENTIN 100 MG CAP PO SCH ×3 (05:17→21:15)
[2016-10-20] MEDS: ALBUTEROL SULF 2.5 MG/0.5ML(0.5%) NEB SOLN NEB SCH ×5 (05:54→22:10)
[2016-10-20] MEDS: IPRATROPIUM BROM 0.5 MG/2.5ML INH SOL NEB SCH ×5 (05:54→22:10)
[2016-10-20] MEDS: ACCU-CHEK COMFORT CURVE STRIP VI SCH ×4 (06:19→21:16)
[2016-10-20] MEDS: InsuLIN REG 1unit/0.01ml Soln (100units/ml) SC SCH ×4 (06:23→22:00)
[2016-10-20 08:47] VITALS: BP 131/73
[2016-10-20 09:00] VITALS: BP 108/60
[2016-10-20] MEDS: PANTOPRAZOLE SODIUM 40 MG/10 ML VIAL IV SCH (11:06)
[2016-10-20] MEDS: CARVEDILOL 12.5 MG TAB PO SCH ×2 (11:08→21:15)
[2016-10-20] MEDS: MORPHINE SULF INJ 2 MG/ML SYRINGE 1ML IV PRN ×2 (11:08→18:34)
[2016-10-20] MEDS: SERTRALINE HCL 50 MG TAB PO SCH (11:08)
[2016-10-20 12:58] LABS: Basophils # (auto) 0 uL; Basophils % (auto) 0.1 % (0.0-2.0); DEFINITIVE VIEW TRANSMISSION; Eosinophils # (auto) 0.8 uL; Hematocrit 34.5 % (41.0-53.0); Hemoglobin 10.8 g/dL (13.5-17.5); Lymphocytes # (auto) 0.6 uL; Lymphocytes % (auto) 5.1 % (10.0-50.0); Mean Corpuscular Hemoglobin 29.1 pg (28.0-32.0); Mean Corpuscular Hgb Conc. 31.3 g/dL (32.0-36.0); Mean Platelet Volume 9.1 fL (7.4-10.4); Monocytes # (auto) 0.5 uL; Monocytes % (auto) 4.3 % (0.0-12.0); Neutrophils # (auto) 9.4 uL; Neutrophils % (auto) 83.5 % (37.0-80.0); Platelet Count (auto) 210 10^3/uL (140-450); Red Cell Distribution Width 15.2 % (11.6-16.0); White Blood Cell 11.3 10^3/uL (4.4-10.8)
[2016-10-20 13:00] VITALS: BP 132/78
[2016-10-20 17:00] VITALS: BP 103/57
[2016-10-20 20:00] VITALS: BP 123/67
[2016-10-20] MEDS: ACETAMINOPHEN 325 MG TAB PO PRN (20:36)
[2016-10-20] MEDS: ATORVASTATIN 20 MG TAB PO SCH (21:13)
[2016-10-21] MEDS: IPRATROPIUM BROM 0.5 MG/2.5ML INH SOL NEB SCH ×4 (02:36→14:25)
[2016-10-21] MEDS: ALBUTEROL SULF 2.5 MG/0.5ML(0.5%) NEB SOLN NEB SCH ×4 (02:36→14:24)
[2016-10-21] MEDS: ACETAMINOPHEN 325 MG TAB PO PRN (04:42)
[2016-10-21 04:56] VITALS: BP 120/69
[2016-10-21] MEDS: PIPERACILLIN-TAZOB 3.375GM 100 ML IV SCH ×2 (06:00→14:00)
[2016-10-21] MEDS: GABAPENTIN 100 MG CAP PO SCH ×2 (06:13→14:54)
[2016-10-21 06:32] LABS: Basophils # (auto) 0 uL; Basophils % (auto) 0.1 % (0.0-2.0); DEFINITIVE VIEW TRANSMISSION; Eosinophils % (auto) 9.4 % (0.0-7.0); Hematocrit 35.5 % (41.0-53.0); Hemoglobin 11.2 g/dL (13.5-17.5); Lymphocytes # (auto) 0.5 uL; Lymphocytes % (auto) 4.9 % (10.0-50.0); Mean Corpuscular Hemoglobin 29.5 pg (28.0-32.0); Mean Corpuscular Hgb Conc. 31.5 g/dL (32.0-36.0); Mean Corpuscular Volume 93.4 fL (80.0-100.0); Mean Platelet Volume 9.3 fL (7.4-10.4); Monocytes # (auto) 0.5 uL; Monocytes % (auto) 4.6 % (0.0-12.0); Neutrophils # (auto) 8.8 uL; Platelet Count (auto) 207 10^3/uL (140-450); Red Cell Distribution Width 15.6 % (11.6-16.0); White Blood Cell 10.9 10^3/uL (4.4-10.8)
[2016-10-21 06:44] LABS: BUN/Creatinine Ratio 22.7; Calcium 8.5 mg/dL (8.5-10.1); Potassium 3.9 mmol/L (3.5-5.1)
[2016-10-21] MEDS: InsuLIN REG 1unit/0.01ml Soln (100units/ml) SC SCH ×2 (07:00→12:30)
[2016-10-21] MEDS: ACCU-CHEK COMFORT CURVE STRIP VI SCH ×2 (07:00→12:17)
[2016-10-21 08:00] VITALS: BP 110/61
[2016-10-21] MEDS: CARVEDILOL 12.5 MG TAB PO SCH (09:40)
[2016-10-21] MEDS: SERTRALINE HCL 50 MG TAB PO SCH (09:41)
[2016-10-21] MEDS: PANTOPRAZOLE SODIUM 40 MG/10 ML VIAL IV SCH (09:41)
[2016-10-21] MEDS: MORPHINE SULF INJ 2 MG/ML SYRINGE 1ML IV PRN (09:55)
[2016-10-21 12:00] VITALS: BP 124/74
[2016-10-21] MEDS ORDERED: HYDROcodone-ACET 5/325MG TAB PO ONE (13:30)
[2016-10-21 15:34] VITALS: BP 124/72
== END 2016-10-21 16:00 | DRG 871 ==
LOC: ER 02:11 → EDBD 02:11 → TELE 02:12 → ICU WEST 10:34 → TELE-CENTR 10-15 12:33
PROVIDERS: ADMIT Family Medicine; ATTEND Family Medicine
PROC: 5A1945Z Respiratory Ventilation, 24-96 Consecutive Hours (ICD-10-PCS; principal; 2016-10-11)
PROC: 0BH18EZ Insertion of Endotracheal Airway into Trachea, Via Natural or Artificial Opening Endoscopic (ICD-10-PCS; 2016-10-11)
PROC: 30233N1 Transfusion of Nonautologous Red Blood Cells into Peripheral Vein, Percutaneous Approach (ICD-10-PCS; 2016-10-11)
PROC: 5A09557 Assistance with Respiratory Ventilation, Greater than 96 Consecutive Hours, Continuous Positive Airway Pressure (ICD-10-PCS; 2016-10-15)
DX: A41.9 Sepsis, unspecified organism (principal); J18.9 Pneumonia, unspecified organism; J96.21 Acute and chronic respiratory failure with hypoxia; J96.22 Acute and chronic respiratory failure with hypercapnia; J44.1 Chronic obstructive pulmonary disease with (acute) exacerbation; E66.2 Morbid (severe) obesity with alveolar hypoventilation; D62 Acute posthemorrhagic anemia; J44.0 Chronic obstructive pulmonary disease with (acute) lower respiratory infection; I82.411 Acute embolism and thrombosis of right femoral vein; I82.441 Acute embolism and thrombosis of right tibial vein; I13.0 Hypertensive heart and chronic kidney disease with heart failure and stage 1 through stage 4 chronic kidney disease, or unspecified chronic kidney disease; Z68.43 Body mass index [BMI] 50.0-59.9, adult; I50.9 Heart failure, unspecified; E11.22 Type 2 diabetes mellitus with diabetic chronic kidney disease; G47.00 Insomnia, unspecified; I27.81 Cor pulmonale (chronic); N18.3 Chronic kidney disease, stage 3 (moderate); Z83.3 Family history of diabetes mellitus; Z82.3 Family history of stroke; Z99.81 Dependence on supplemental oxygen; Z79.01 Long term (current) use of anticoagulants; Z88.2 Allergy status to sulfonamides; Z88.1 Allergy status to other antibiotic agents; Z79.899 Other long term (current) drug therapy; Z23 Encounter for immunization
CPT/HCPCS: 31500; 36415; 36600; 70450; 71010; 73130; 80048; 80053; 81001; 82805; 82962; 83605; 83735; 83880; 84484; 85014; 85018; 85025; 85049; 85610; 85730; 86141; 86850; 86900; 86901; 86920; 87040; 87070; 87081; 87205; 93005; 93970; 93971; 94002; 94003; 94640; 94660; 96365; 96366; 96375; 97110; 99291; C9113; J0330; J1815; J2543; J2704; J3490

== ENCOUNTER 2016-10-25 03:02 | Emergency (ER) | payer OTHER ==
[~2016-10-25] VITALS: Ht 170.2 cm; Wt 149.7 kg
[~2016-10-25 03:02] MED LIST changes: -ETOMIDATE (2MG/ML) 20ML VIAL IV ONE; -FUROSEMIDE 20 MG/2 ML VIAL ONE; -FUROSEMIDE 40 MG/4 ML VIAL ONE; +LISI10TA6 PO; +METF-312 PO; -MIDAZOLAM DRIP 100 mg/100mL NS 100 ML IV ONE; +PRE5T PO; +SERT-135 PO; -SUCCINYLCHOLINE CHLORIDE 20 MG/ML 10ML VIAL IV ONE
[2016-10-25 03:39] LABS: Basophils # (auto) 0 uL; Basophils % (auto) 0.1 % (0.0-2.0); DEFINITIVE VIEW TRANSMISSION; Eosinophils # (auto) 0.9 uL; Eosinophils % (auto) 14.4 % (0.0-7.0); Hematocrit 39.2 % (41.0-53.0); Hemoglobin 11.8 g/dL (13.5-17.5); Lymphocytes # (auto) 0.5 uL; Lymphocytes % (auto) 7.7 % (10.0-50.0); Mean Corpuscular Hemoglobin 28.7 pg (28.0-32.0); Mean Corpuscular Hgb Conc. 30.2 g/dL (32.0-36.0); Mean Corpuscular Volume 94.9 fL (80.0-100.0); Mean Platelet Volume 8.8 fL (7.4-10.4); Monocytes # (auto) 0.3 uL; Neutrophils # (auto) 4.6 uL; Neutrophils % (auto) 72.8 % (37.0-80.0); Platelet Count (auto) 215 10^3/uL (140-450); Red Cell Distribution Width 16.1 % (11.6-16.0); White Blood Cell 6.3 10^3/uL (4.4-10.8)
[2016-10-25 03:58] LABS: Albumin 2.9 g/dL (3.4-5.0); BUN/Creatinine Ratio 19.8; Calcium 8.5 mg/dL (8.5-10.1); Potassium 4.2 mmol/L (3.5-5.1)
[2016-10-25 04:01] LABS: Bilirubin, Total 0.9 mg/dL (0.2-1.0); Total Protein 6.8 g/dL (6.4-8.2)
[2016-10-25 04:13] LABS: Partial Thromboplastin Time 31.7 sec (22.64-33.71); Prothrombin Time 12.3 sec (9.37-12.3)
[2016-10-25 04:49] LABS: INR 1.19 (0.9-1.15)
[2016-10-25] MEDS ORDERED: FUROSEMIDE 40 MG/4 ML VIAL IV ONE (09:45)
[2016-10-25 12:08] VITALS: BP 150/69
== END 2016-10-25 13:21 | disposition home or self-care (01) ==
LOC: EDUNIT# 03:02 → ER 03:02 → EDBD 03:02 → ER 13:21
DX: I13.0 Hypertensive heart and chronic kidney disease with heart failure and stage 1 through stage 4 chronic kidney disease, or unspecified chronic kidney disease (principal); N18.9 Chronic kidney disease, unspecified; I50.9 Heart failure, unspecified; E46 Unspecified protein-calorie malnutrition; E66.01 Morbid (severe) obesity due to excess calories; Z68.43 Body mass index [BMI] 50.0-59.9, adult; J44.9 Chronic obstructive pulmonary disease, unspecified; E11.9 Type 2 diabetes mellitus without complications
CPT/HCPCS: 36415; 36600; 71010; 80053; 82805; 83605; 83880; 84484; 85025; 85610; 85730; 87040; 93005; 93970; 96374; 99285; J1940